=== PATIENT | male | born 1990 | race Hispanic/Latino ===

== ENCOUNTER 2018-05-17 04:39 | Emergency (ER) | payer OTHER ==
[2018-05-17] MEDS ORDERED: ACETAMINOPHEN EXTRA STRENGTH 500 MG TABLET ONE (05:00)
[2018-05-17] MEDS ORDERED: LIDOCAINE HCL 2% VISCOUS 15 ML UDCUP ONE (05:00)
[2018-05-17] MEDS ORDERED: IBUPROFEN 400 MG TABLET ONE (05:00)
[2018-05-17] MEDS ORDERED: IBUPROFEN 200 MG TAB ONE (05:01)
== END 2018-05-17 05:18 | disposition home or self-care (01) ==
LOC: EDH 04:39
DX: B34.9 Viral infection, unspecified (principal); J06.9 Acute upper respiratory infection, unspecified